=== PATIENT | female | born 1975 | race African-American/Black ===

== ENCOUNTER 2018-01-12 20:07 | Emergency (ER) | payer MEDICARE ==
[~2018-01-12] VITALS: Ht 154.9 cm; Wt 45.0 kg
[~2018-01-12 20:07] MED LIST: ALBU8.5H5 INH; CARB200T2 PO; LEVE100020 PO; LEVE500T53 PO
[2018-01-12 20:09] VITALS: BP 113/71
== END 2018-01-12 20:40 | disposition home or self-care (01) ==
LOC: ED 20:34
DX: K08.89 Other specified disorders of teeth and supporting structures (principal); G40.909 Epilepsy, unspecified, not intractable, without status epilepticus; J45.909 Unspecified asthma, uncomplicated
CPT/HCPCS: 99283

== ENCOUNTER 2021-01-30 08:50 | Emergency (ER) | payer MEDICARE ==
[~2021-01-30] VITALS: Ht 154.9 cm; Wt 46.3 kg
--- NOTE | 2021-01-30 09:17 | NUR ---
FIRST CONTACT: CHR RT SHOULDER/NECK PAIN WORSENING AFTER SLEEPING ON IT WRONG LAST NIGHT. PT WITH STEADY GAIT TO ROOM.
[2021-01-30] MEDS ORDERED: DIAZEPAM 5 MG TABLET ONE (09:53)
[2021-01-30] MEDS ORDERED: KETOROLAC 30 MG/1 ML ONE (09:54)
[2021-01-30] MEDS ORDERED: KETOROLAC 30 MG/1 ML IM ONE (10:00)
[2021-01-30] MEDS ORDERED: DIAZEPAM 5 MG TABLET PO ONE (10:00)
[2021-01-30 11:08] VITALS: BP 107/66
--- NOTE | 2021-01-30 11:14 | NUR ---
Patient given discharge instructions and they have confirmed that they understand the instructions. Patient ambulatory with steady gait. NAD, all questions answered appropriately, denies additional needs at this time. No personal belongings left in room after discharge.
== END 2021-01-30 11:15 | disposition home or self-care (01) ==
LOC: ED 09:06
DX: S16.1XXA Strain of muscle, fascia and tendon at neck level, initial encounter (principal); J45.909 Unspecified asthma, uncomplicated; G40.909 Epilepsy, unspecified, not intractable, without status epilepticus; X58.XXXA Exposure to other specified factors, initial encounter; Y93.89 Activity, other specified; Y92.89 Other specified places as the place of occurrence of the external cause; Y99.8 Other external cause status
CPT/HCPCS: 96372; 99283; J1885